=== PATIENT | male | born 1990 | race Hispanic/Latino ===

== ENCOUNTER → 2016-07-19 | Outpatient (CLI) | payer OTHER | LOC: GMAB 15:54 | PROVIDERS: ATTEND Family Medicine | DX: Z00.01 Encounter for general adult medical examination with abnormal findings (principal) ==

== ENCOUNTER → 2019-04-11 | Outpatient (CLI) | payer BC | LOC: GMAF 11:13 | PROVIDERS: ATTEND Nurse Practitioner Family | DX: Z00.01 Encounter for general adult medical examination with abnormal findings (principal) ==